=== PATIENT | female | born 1970 | race African-American/Black ===

== ENCOUNTER 2016-06-14 15:21 | Emergency (ER) | payer OTHER ==
[~2016-06-14] VITALS: Ht 165.1 cm; Wt 71.2 kg
[2016-06-14] MEDS ORDERED: IV NORMAL SALINE 1000ML BAG 1,000 ML IV SCH (17:30)
[2016-06-14 17:38] LABS: BILIRUBIN,URINE NEGATIVE (NEG); GLUCOSE,URINE NEGATIVE (NEG); NITRITE,URINE NEGATIVE (NEG); PROTEIN,URINE NEGATIVE (NEG-TRACE); UROBILINOGEN,URINE 0.2 mg/dL (0.2 mg/dL)
[2016-06-14 17:47] LABS: BACTERIA,URINE 0 /HPF (0-FEW); RBC,URINE OCC /HPF (0-2); SQUAMOUS EPITHELIAL CELL,UR FEW /LPF; WBC,URINE 0 /HPF (0-4)
[2016-06-14 17:57] LABS: BASO # 0.1 x10^3/uL (0.0-0.2); BASO % 1 % (0-3); EOS % 3 % (0-3); HEMATOCRIT 44.1 % (36.0-47.0); HEMOGLOBIN 14.5 g/dL (12.0-15.5); LYMPH # 2.3 x10^3/uL (1.0-4.8); LYMPH % 30 % (24-48); MEAN CORPUSCULAR HEMOGLOBIN 31 pg (25-35); MEAN CORPUSCULAR HGB CONC 33 g/dL (31-37); MEAN CORPUSCULAR VOLUME 95 fL (79-100); MONO % 6 % (0-9); NEUT % 60 % (31-73); PLATELET COUNT 257 x10^3/uL (140-400); RED BLOOD COUNT 4.67 x10^6/uL (3.50-5.40); RED CELL DISTRIBUTION WIDTH 12.9 % (11.5-14.5); WHITE BLOOD COUNT 7.6 x10^3/uL (4.0-11.0)
[2016-06-14 18:09] LABS: CALCIUM 9.7 mg/dL (8.5-10.1); CREATININE 0.7 mg/dL (0.6-1.0); GFR 109.5; POTASSIUM 4.3 mmol/L (3.5-5.1)
[2016-06-14 18:15] LABS: ALBUMIN 4.1 g/dL (3.4-5.0); TOTAL BILIRUBIN 0.3 mg/dL (0.2-1.0); TOTAL PROTEIN 8.4 g/dL (6.4-8.2)
--- NOTE | 2016-06-14 18:31 | PHYS DOC ---
Past Medical History Past Medical History: Hypertension, Uterine Fibroids, Other Additional Past Medical Histor: IBS, DERMATITIS, HTN WHICH SHE IS NO LONGER TREATED FOR. Past Surgical History: Other Additional Past Surgical Histo: FIBROID REMOVAL, D&C, CYST REMOVED FROM HAND, FOOT Alcohol Use: Occasionally Drug Use: None Adult General Chief Complaint Chief Complaint: DIZZY/LIGHT HEADED HPI HPI Patient is a 45 year old female who presents with multiple complaints. For about 1-2 weeks, the patient has had some pressure-type headaches and feels a "heaviness in her head". She has felt dizzy which is poorly described does not sound like vertigo and does not sound like faintness. She feels like "her head is floating". She started taking a new medication for facial dermatitis and early May, . She wondered if these might be side effects of the medication and so did stop taking it on Sunday, 5 days ago. She has not had any improvement in her symptoms. She's had no nausea or vomiting. She does have IBS and she has daily cramping. She has had this since 2009 and has had a GI workup, she takes occasional symptom relief and also occasional doses of Linzess. She hasn't had any worse IBS symptoms than usual. Her last menstrual period was a little bit heavy but other than that had been normal. She has no sore throat, no blowing her nose, no runny nose. Review of Systems Review of Systems Constitutional: Denies fever or chills [] Eyes: Denies change in visual acuity, redness, or eye pain [] HENT: Denies nasal congestion or sore throat [] Respiratory: Denies cough or shortness of breath [] Cardiovascular: No chest pain GI: As in history of present illness : Denies dysuria or hematuria [] Musculoskeletal: Denies back pain or joint pain [] Integument: Denies rash or skin lesions [] Neurologic: As in history of present illness Current Medications Current Medications Current Medications Medications (Trade) Dose Ordered Sig/Logan Start Time Stop Time Status Last Admin Dose Admin Sodium Chloride (Iv Sodium Chloride 0.9% 1000ml Bag) 1,000 ml @ 1,000 mls/hr Q1H 06/14/16 17:30 06/14/16 18:29 DC 06/14/16 18:18 1,000 MLS/HR Allergies Allergies Allergies Coded Allergies Type Severity Reaction Last Updated Verified No Known Drug Allergies 06/14/16 No Physical Exam Physical Exam Constitutional: Well developed, well nourished, no acute distress, non-toxic appearance. Alert, mentating normally, appears to not feel well but does not appear acutely ill. Vital signs normal. HENT: Normocephalic, atraumatic, bilateral external ears normal, TMs normal bilaterally, oropharynx moist, no oral exudates, nose normal. [] Eyes: conjunctiva normal, no discharge. [] Neck: Normal range of motion, no stridor. [] Cardiovascular:Heart rate regular rhythm, no murmur [] Lungs & Thorax: Bilateral breath sounds clear to auscultation [] Skin: Warm, dry, no erythema, no rash. [] Extremities: No tenderness, no cyanosis, no clubbing, ROM intact, no edema. [] Neurologic: Alert and oriented X 3, normal motor function, normal sensory function, no focal deficits noted. [] Current Patient Data Vital Signs Vital Signs Date Time Temp Pulse Resp B/P Pulse Ox O2 Delivery O2 Flow Rate FiO2 06/14/16 18:45 82 16 167/86 100 Room Air 06/14/16 16:51 98.3 98.3 Lab Values Laboratory Tests Test 06/14/16 16:35 06/14/16 16:54 06/14/16 17:45 Urine Collection Type Unknown Urine Color Yellow Urine Clarity Clear Urine pH 7.0 Urine Specific [place] 1.015 Urine Protein Negativemg/dL (NEG-TRACE) Urine Glucose (UA) Negativemg/dL (NEG) Urine Ketones (Stick) Negativemg/dL (NEG) Urine Blood Negative (NEG) Urine Nitrite Negative (NEG) Urine Bilirubin Negative (NEG) Urine Urobilinogen Dipstick 0.2mg/dL (0.2 mg/dL) Urine Leukocyte Esterase Negative (NEG) Urine RBC Occ/HPF (0-2) Urine WBC 0/HPF (0-4) Urine Squamous Epithelial Cells Few/LPF Urine Bacteria 0/HPF (0-FEW) Urine Mucus Slight/LPF POC Urine HCG, Qualitative Hcg negative (Negative) White Blood Count 7.6x10^3/uL (4.0-11.0) Red Blood Count 4.67x10^6/uL (3.50-5.40) Hemoglobin 14.5g/dL (12.0-15.5) Hematocrit 44.1% (36.0-47.0) Mean Corpuscular Volume 95fL (79-100) Mean Corpuscular Hemoglobin 31pg (25-35) Mean Corpuscular Hemoglobin Concent 33g/dL (31-37) Red Cell Distribution Width 12.9% (11.5-14.5) Platelet Count 257x10^3/uL (140-400) Neutrophils (%) (Auto) 60% (31-73) Lymphocytes (%) (Auto) 30% (24-48) Monocytes (%) (Auto) 6% (0-9) Eosinophils (%) (Auto) 3% (0-3) Basophils (%) (Auto) 1% (0-3) Neutrophils # (Auto) 4.6x10^3uL (1.8-7.7) Lymphocytes # (Auto) 2.3x10^3/uL (1.0-4.8) Monocytes # (Auto) 0.5x10^3/uL (0.0-1.1) Eosinophils # (Auto) 0.2x10^3/uL (0.0-0.7) Basophils # (Auto) 0.1x10^3/uL (0.0-0.2) Sodium Level 139mmol/L (136-145) Potassium Level 4.3mmol/L (3.5-5.1) Chloride Level 102mmol/L (98-107) Carbon Dioxide Level 25mmol/L (21-32) Anion Gap 12 (6-14) Blood Urea Nitrogen 10mg/dL (7-20) Creatinine 0.7mg/dL (0.6-1.0) Estimated GFR (Cockcroft-Gault) 109.5 BUN/Creatinine Ratio 14 (6-20) Glucose Level 94mg/dL (70-99) Calcium Level 9.7mg/dL (8.5-10.1) Total Bilirubin 0.3mg/dL (0.2-1.0) Aspartate Amino Transferase (AST) 22U/L (15-37) Alanine Aminotransferase (ALT) 11U/L (14-59) L Alkaline Phosphatase 86U/L (46-116) Total Protein 8.4g/dL (6.4-8.2) H Albumin 4.1g/dL (3.4-5.0) Albumin/Globulin Ratio 1.0 (1.0-1.7) Laboratory Tests 06/14/16 17:45 Laboratory Tests 06/14/16 17:45 EKG EKG 12-lead EKG read by me. Sinus rhythm. Heart rate 78. There are no acute ST or T wave changes indicative of ischemia or infarction. No STEMI. 1646 [] Radiology/Procedures Radiology/Procedures [] Course & Med Decision Making Course & Med Decision Making Pertinent Labs and Imaging studies reviewed. (See chart for details) 45-year-old female with complaints of pressure type sensation in the head, heaviness, nonspecific dizziness. She does not appear to have a sinus infection or seasonal allergy symptoms at this time. I discussed with her we will check some labs and she is agreeable to that. Labs are unremarkable for acute findings. test negative. The patient remained stable while in the emergency department. I discussed with her that we are not finding a cause for her nonspecific symptoms, recommended symptomatic treatment for a few days and follow-up with her doctor if symptoms persist. Note that her blood pressure was a bit elevated in the ED in the systolic 150- 160 range. The patient has never had elevated blood pressure and is not treated for hypertension. I don't feel that it would be appropriate to initiate treatment at this time based on blood pressure readings just 1 day in the emergency department but I did advise her to follow this up with her doctor and if her blood pressure remains in this range she definitely will need some further evaluation and probably blood pressure medications and she is agreeable with that. [] Dragon Disclaimer Dragon Disclaimer This electronic medical record was generated, in whole or in part, using a voice recognition dictation system. Departure Departure Impression: Primary Impression: Dizziness and giddiness Disposition: 01 HOME, SELF-CARE Condition: STABLE Referrals: NO PCP (PCP) Additional Instructions: As we discussed, labs here in the emergency department were normal. We did not find any serious cause of your symptoms. I do recommend that you continue to not take the new medication Oracea for a week or 2 and see if your symptoms are improved. Discuss this with the doctor who prescribed it for you. Drink plenty of fluids, be sure to eat regular healthy meals, and follow-up with your primary care physician. ALVINO LAMA MD Jun 14, 2016 18:31
[2016-06-14 18:45] VITALS: BP 167/86
--- NOTE | 2016-06-15 06:06 | EKG ---
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
== END 2016-06-14 19:10 | disposition home or self-care (01) ==
LOC: ER 15:21
DX: R42 Dizziness and giddiness (principal); R51 Headache; I10 Essential (primary) hypertension; K58.9 Irritable bowel syndrome, unspecified
CPT/HCPCS: 36415; 80053; 81001; 81025; 85027; 93005; 96360; 99285; J7030